=== PATIENT | male | born 1975 | race Caucasian/White ===

== ENCOUNTER 2017-11-18 16:27 | Emergency (ER) | payer SELFPAY ==
[2017-11-18] MEDS ORDERED: LABETALOL HCL INJ 200 MG/40 ML VIAL IV ONE (16:39)
[2017-11-18 16:50] LABS: INTERNATIONAL RATION (INR) 1.06; PARTIAL THROMBOPLASTIN TIME 21.6 SEC (23.5-35.8); PROTHROMBIN TIME 14.4 SEC (11.4-15.4)
[2017-11-18 16:52] LABS: ABSOLUTE BASOPHILS # (AUTO) 0.1 10^3/uL (0.0-0.2); ABSOLUTE EOSINOPHILS # (AUTO) 0.1 10^3/uL (0.0-0.6); ABSOLUTE LYMPHOCYTES (AUTO) 2.4 10^3/uL (0.5-4.7); ABSOLUTE MONOCYTES (AUTO) 1.2 10^3/uL (0.1-1.4); ABSOLUTE NEUT (AUTO) 6.5 10^3/uL (1.7-8.2); BASOPHILS % (AUTO) 0.9 % (0-2); EOSINOPHILS % (AUTO) 0.6 % (0-6); HEMOGLOBIN 15.5 g/dL (13.5-17.0); LYMPHOCYTES % (AUTO) 23.6 % (13-45); MEAN CORPUSCULAR HGB CONC 34.4 g/dL (32.0-36.0); MEAN CORPUSCULAR VOLUME 87 fl (80-97); MONOCYTES % (AUTO) 11.8 % (3-13); PLATELET COUNT 207 10^3/uL (150-450); RED BLOOD COUNT 5.17 10^6/uL (4.35-5.55); RED CELL DISTRIBUTION WIDTH 14.1 % (11.5-14.0); SEGMENTED NEUTROPHILS % (AUTO) 63.1 % (42-78); TOTAL CELLS COUNTED % (AUTO) 100 %; WHITE BLOOD COUNT 10.3 10^3/uL (4.0-10.5)
[2017-11-18] MEDS ORDERED: NALOXONE HCL INJ/PF 0.4 MG/1 ML SDV IV ONE (16:55)
[2017-11-18] MEDS: NORMAL SALINE 1000 ML 1,000 ML IV PRN ×2 (16:57→17:08)
[2017-11-18] MEDS ORDERED: NALOXONE HCL INJ 2 MG/2 ML DISP.SYRIN ONE (17:00)
[2017-11-18] MEDS ORDERED: NALOXONE HCL INJ 2 MG/2 ML DISP.SYRIN IV ONE (17:01)
--- NOTE | 2017-11-18 17:06 | ER Document Report ---
ED General - General Stated Complaint: UNRESPONSIVE Time Seen by Provider: 11/18/17 16:51 Information source: Emergency Med Personnel - HPI Notes: Patient presents by EMS unresponsive and intubated. Per EMS they were called to his house where he was found lying in bed face down. Patient's roommates are the one that called EMS. They did reportedly see him normal at some point this morning but a time is unknown. Patient was found about 25 minutes prior to EMS arrival in the emergency room. Patient's roommate state he has a history of alcoholism but had recently been clean. They denied any drug use to EMS. EMS did not see any medication bottles or drug paraphernalia in the house. HPI is limited because patient is unresponsive and intubated. Past Medical History - Social History Smoking Status: Unknown if Ever Smoked Frequency of alcohol use: History of alcoholism Family History: Other - Unable to obtain because of patient condition - Immunizations Immunizations Comment: Unknown Review of Systems - Review of Systems -: Yes ROS unobtainable due to patient's medical condition Physical Exam - Notes Notes: PHYSICAL EXAMINATION: GENERAL: Diaphoretic, intubated HEAD: Atraumatic, normocephalic. EYES: Pupils equal round and reactive to light, conjunctiva are normal. ENT: nares patent, Moist mucous membranes. NECK:supple without lymphadenopathy LUNGS: Breath sounds diminished to auscultation bilaterally and equal. Endotracheal tube in place, patient has spontaneous respirations. HEART: Tachycardic and ocular rhythm without murmurs ABDOMEN: Soft, normoactive bowel sounds. No masses appreciated. EXTREMITIES: no pitting edema. No cyanosis. No long bone deformities or signs of trauma NEUROLOGICAL: GCS 3 T SKIN: Warm, normal turgor, no rashes or lesions noted. Course - Re-evaluation Re-evalutation: 11/18/17 17:04 Patient arrived by EMS. [id number] glucose stable. Endotracheal tube confirmed with color capnography, symmetric bilateral breath sounds, condensation in endotracheal tube and oxygen saturation of 100%. Patient was tachycardic and hypertensive and there is clinical concern for intracranial hemorrhage. He was given 10 mg IV labetalol for his uncontrolled hypertension and had a bed elevated to 30. CT brain obtained to evaluate for intracranial hemorrhage. Patient has no ICH but CT does show a anoxic brain injury. Chest x -ray shows endotracheal tube at the abbie, ET tube was pulled back 2 cm. EKG shows sinus tachycardia. On reevaluation after CT patient is having nonpurposeful twitching of his upper extremities. He was started on propofol infusion for possible status epilepticus. Lactic acid elevated at 3.5 and he was started on IV hydration. Blood cultures were obtained and patient was given vancomycin and Zosyn for possible underlying sepsis. Patient is requiring neurology consultation and will be transferred to outside facility for further care. Patient's care was discussed with Dr. Scott Medina at [facility] who has accepted patient for admission to their ICU for further management. 11/18/17 17:16 11/18/17 17:20 11/18/17 17:32 11/18/17 17:33 11/18/17 17:35 - Laboratory Result Diagrams: 11/18/17 16:35 11/18/17 16:35 Laboratory results interpreted by me: 11/18/17 11/18/17 11/18/17 16:34 16:35 16:35 RDW 14.1 H APTT 21.6 L Sodium Creatinine Glucose POC Glucose 200 H Lactic Acid Calcium AST ALT Salicylates Acetaminophen 11/18/17 11/18/17 11/18/17 16:35 16:35 16:35 RDW APTT Sodium 147.9 H Creatinine 0.45 L Glucose 205 H POC Glucose Lactic Acid 3.5 H Calcium 8.3 L AST 81 H ALT 86 H Salicylates < 1.0 L Acetaminophen < 10 L - Diagnostic Test Radiology reviewed: Image reviewed, Reports reviewed - EKG Interpretation by Me Additional EKG results interpreted by me: 11/18/17 17:29 Sinus tachycardia, normal axis, no ectopy, rate 163 Critical Care Note - Critical Care Note Total time excluding time spent on procedures (mins): 35 Comments: Potential for cardiovascular and respiratory decompensation. Blood pressure and respiratory stabilization.. Discussed with medical numerical control operator. Discharge - Discharge Clinical Impression: Anoxic brain injury, Lactic acidosis, Unresponsive state, Hypernatremia Alcohol intoxication Qualifiers: Complication of substance-induced condition: with unspecified complication Qualified Code(s): F10.929 - Alcohol use, unspecified with intoxication, unspecified Condition: Stable Disposition: [facility] Unit Admitted: ICU Referrals: LOCALMD,NO [NO LOCAL MD] - Follow up as needed
[2017-11-18 17:12] LABS: ALANINE AMINOTRANSFERASE 86 U/L (21-72); ALBUMIN 4.3 g/dL (3.5-5.0); ALKALINE PHOSPHATASE 112 U/L (38-126); ANION GAP 18 (5-19); ASPARTATE AMINO TRANSFERASE 81 U/L (17-59); BILIRUBIN,DIRECT 0.4 mg/dL (0.0-0.4); BILIRUBIN,TOTAL 0.5 mg/dL (0.2-1.3); BLOOD UREA NITROGEN 10 mg/dL (7-20); CALCIUM 8.3 mg/dL (8.4-10.2); CARBON DIOXIDE 28 mmol/L (22-30); CHLORIDE 102 mmol/L (98-107); CREATINE KINASE 98 U/L (55-170); GLUCOSE 205 mg/dL (75-110); POTASSIUM 3.7 mmol/L (3.6-5.0); SODIUM 147.9 mmol/L (137-145); TOTAL PROTEIN 7.9 g/dL (6.3-8.2)
[2017-11-18 17:13] LABS: ALCOHOL 131 mg/dL (NONE DETECTED)
[2017-11-18 17:16] LABS: ACETAMINOPHEN < 10 ug/mL (10-30); SALICYLATE < 1.0 mg/dL (2.0-20.0)
--- NOTE | 2017-11-18 17:17 | RADIOLOGY REPORT (SQ) ---
EXAM DESCRIPTION: CT HEAD WITHOUT COMPLETED DATE/TIME: 11/18/2017 4:50 pm REASON FOR STUDY: Stroke Alert COMPARISON: None. TECHNIQUE: Axial images acquired through the brain without intravenous contrast. Images reviewed wi th bone, brain and subdural windows. Additional sagittal and coronal reconstructions were generated. Images stored on PACS. All CT scanners at this facility use dose modulation, iterative reconstruction, and/or weight based d osing when appropriate to reduce radiation dose to as low as reasonably achievable (ALARA). [facility]: Dose Right [facility]: CareDose [facility]: Dose Right [facility]: Teradose 4D [facility]: Smart [employer] RADIATION DOSE: CT Rad equipment meets quality standard of care and radiation dose reduction techniq ues were employed. CTDIvol: 53.2 mGy. DLP: 1097 mGy-cm. mGy. LIMITATIONS: None. FINDINGS: VENTRICLES: Normal size and contour. CEREBRUM: No masses. No hemorrhage. No midline shift. There is poor srivastava-white differentiation ove r the convexities and along the temporal lobes. This is worrisome for anoxic injury with diffuse cer ebral edema. Findings discussed with Dr. Alcantar, 1700 hours 11/18/2017. CEREBELLUM: No masses. No hemorrhage. No alteration of density. No evidence for acute infarction. EXTRAAXIAL SPACES: No fluid collections. No masses. ORBITS AND GLOBE: No intra- or extraconal masses. Normal contour of globe without masses. CALVARIUM: No fracture. PARANASAL SINUSES: Air-fluid level left maxillary sinus SOFT TISSUES: No mass or hematoma. OTHER: No other significant finding. IMPRESSION: For srivastava-white differentiation over the convexities and along the temporal lobes worriso me for anoxic brain injury and cerebral edema. Findings discussed with Dr. Alcantar in the emergency sasha m EVIDENCE OF ACUTE STROKE: Diffuse anoxic injury COMMENT: Pertinent findings on the imaging study reported as a CRITICAL RESULT to Dr ALCANTAR at17:00 o n 11/18/2017. Category of Critical Result: CT code stroke Quality ID # [id number]: Final reports with documentation of one or more dose reduction techniques (e.g., Au tomated exposure control, adjustment of the mA and/or kV according to patient size, use of iterative reconstruction technique) TECHNICAL DOCUMENTATION: JOB ID: [id number] [employer]- All Rights Reserved Reading location - IP/workstation name: [email or web address]
[2017-11-18] MEDS ORDERED: PROPOFOL 1,000 MG/100 ML INFUS..BTL IV PRN (17:18)
[2017-11-18] MEDS ORDERED: PROPOFOL 1,000 MG/100 ML INFUS..BTL IV ONE (17:18)
--- NOTE | 2017-11-18 17:19 | RADIOLOGY REPORT (SQ) ---
EXAM DESCRIPTION: CHEST SINGLE VIEW COMPLETED DATE/TIME: 11/18/2017 4:59 pm REASON FOR STUDY: Stroke Alert COMPARISON: None. EXAM PARAMETERS: NUMBER OF VIEWS: One view. TECHNIQUE: Single frontal radiographic view of the chest acquired. RADIATION DOSE: NA LIMITATIONS: Large patient, portable technique FINDINGS: LUNGS AND PLEURA: No opacities, masses or pneumothorax. No pleural effusion. MEDIASTINUM AND HILAR STRUCTURES: No masses. Contour normal. HEART AND VASCULAR STRUCTURES: Mild cardiomegaly BONES: No acute findings. HARDWARE: Endotracheal tube tip at the abbie pointing towards the right mainstem bronchus. Report c alled to Dr. Haq in the emergency room OTHER: Defibrillator pads over the chest. IMPRESSION: Endotracheal tube tip at the abbie pointing towards the right mainstem bronchus. Mild cardiomegaly TECHNICAL DOCUMENTATION: JOB ID: [id number] [employer]- All Rights Reserved Reading location - IP/workstation name: [email or web address]
[2017-11-18] MEDS ORDERED: PIPERACILLIN/TAZOBACTAM 3.375 GM VIAL IV ONE (17:21)
[2017-11-18] MEDS ORDERED: VANCOMYCIN HCL INJ 1000 MG VIAL IV ONE (17:21)
[2017-11-18 17:24] LABS: CREATINE KINASE MB 0.77 ng/mL (<4.55)
[2017-11-18 17:25] LABS: APPEARANCE,URINE CLEAR; BILIRUBIN,URINE NEGATIVE (NEGATIVE); COLOR,URINE YELLOW; GLUCOSE, URINE NEGATIVE (NEGATIVE); KETONES,URINE NEGATIVE (NEGATIVE); LEUKOCYTE ESTERASE,URINE NEGATIVE (NEGATIVE); NITRITE,URINE NEGATIVE (NEGATIVE); PROTEIN,URINE NEGATIVE (NEGATIVE); URINE SPECIFIC GRAVITY 1.015; UROBILINOGEN,URINE NEGATIVE mg/dL (<2.0)
[2017-11-18 17:25] LABS: TROPONIN I < 0.012 ng/mL
[2017-11-18 17:31] LABS: ARTERIAL BLOOD BASE EXCESS -0.3 mmol/L; ARTERIAL BLOOD H2CO3 1.65 mmol/L (1.05-1.35); ARTERIAL BLOOD O2 SATURATION 99.8 % (94-98); ARTERIAL BLOOD PCO2 54.8 mmHg (35-45); ARTERIAL BLOOD PH 7.31 (7.35-7.45); ARTERIAL BLOOD TOTAL CO2 28.7 mmol/L (23-27)
[2017-11-18 17:32] LABS: ARTERIAL BLOOD FIO2 100%
--- NOTE | 2017-11-18 17:33 | EKG REPORT ---
SEVERITY:- ABNORMAL ECG - SINUS TACHYCARDIA ABNRM R PROG, CONSIDER ASMI OR LEAD PLACEMENT : Confirmed by: Ciro Hood MD 18-Nov-2017 17:32:41
[2017-11-18 17:42] LABS: URINE AMPHETAMINES SCREEN NEGATIVE; URINE BARBITURATES SCREEN NEGATIVE; URINE BENZODIAZEPINES SCREEN NEGATIVE; URINE COCAINE SCREEN NEGATIVE; URINE MARIJUANA (THC) SCREEN NEGATIVE; URINE METHADONE SCREEN NEGATIVE; URINE PHENCYCLIDINE SCREEN NEGATIVE
[2017-11-18 19:18] VITALS: BP 147/92
== END 2017-11-18 18:00 | disposition short-term general hospital (02) ==
LOC: ER 16:27
DX: G93.1 Anoxic brain damage, not elsewhere classified (principal); E87.2 Acidosis; E87.0 Hyperosmolality and hypernatremia; R40.20 Unspecified coma; F10.929 Alcohol use, unspecified with intoxication, unspecified; R00.0 Tachycardia, unspecified; I10 Essential (primary) hypertension
CPT/HCPCS: 93005; 36600; 99291; 96361; 51702; 96374; 96375; 36415; 87040; 82553; 82962; 80307 ×4; 82803; 82550; 83605; 85025; 85610; 85730; 80053; 81001; 84484; 71045; 70450; 94660; 93010; J3490; J2310; J7030

== ENCOUNTER 2017-12-12 19:53 | Emergency (ER) | payer OTHER ==
[2017-12-12 20:08] VITALS: BP 154/93
[2017-12-12] MEDS ORDERED: LIDOCAINE 1%/EPINEPHRINE INJ 20 ML VIAL INJ ONE (20:11)
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
== END 2017-12-12 20:52 | disposition left against medical advice (07) ==
LOC: ER 19:53
DX: S09.12XA Laceration of muscle and tendon of head, initial encounter (principal); S01.01XA Laceration without foreign body of scalp, initial encounter; R51 Headache; V48.5XXA Car driver injured in noncollision transport accident in traffic accident, initial encounter; Y93.C2 Activity, hand held interactive electronic device; F17.290 Nicotine dependence, other tobacco product, uncomplicated; Z53.20 Procedure and treatment not carried out because of patient's decision for unspecified reasons
CPT/HCPCS: 99281

== ENCOUNTER 2017-12-23 22:36 | Inpatient (IN) | payer SELFPAY ==
[2017-12-23] MEDS ORDERED: RINGERS SOLUTION,LACTATED 1,000 ML IV ONE (22:56)
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
[2017-12-23 23:57] LABS: HEMATOCRIT 42.3 % (37.9-51.0); HEMOGLOBIN 14.6 g/dL (13.5-17.0); MEAN CORPUSCULAR HEMOGLOBIN 30.1 pg (27.0-33.4); MEAN CORPUSCULAR HGB CONC 34.6 g/dL (32.0-36.0); MEAN CORPUSCULAR VOLUME 87 fl (80-97); PLATELET COUNT 228 10^3/uL (150-450); RED BLOOD COUNT 4.86 10^6/uL (4.35-5.55); RED CELL DISTRIBUTION WIDTH 15.4 % (11.5-14.0); WHITE BLOOD COUNT 21.2 10^3/uL (4.0-10.5)
[2017-12-24 00:01] LABS: ALANINE AMINOTRANSFERASE 346 U/L (21-72); ALBUMIN 4.6 g/dL (3.5-5.0); ALKALINE PHOSPHATASE 166 U/L (38-126); BILIRUBIN,DIRECT 0.8 mg/dL (0.0-0.4); BILIRUBIN,TOTAL 1.1 mg/dL (0.2-1.3); BLOOD UREA NITROGEN 9 mg/dL (7-20); CALCIUM 9.5 mg/dL (8.4-10.2); CARBON DIOXIDE 15 mmol/L (22-30); CHLORIDE 98 mmol/L (98-107); GLUCOSE 177 mg/dL (75-110); LIPASE 131.8 U/L (23-300); POTASSIUM 3.5 mmol/L (3.6-5.0); SODIUM 134.8 mmol/L (137-145); TOTAL PROTEIN 7.9 g/dL (6.3-8.2)
[2017-12-24 00:09] LABS: ALCOHOL < 10 mg/dL (NONE DETECTED)
[2017-12-24 00:10] LABS: ANION GAP 22 (5-19); ASPARTATE AMINO TRANSFERASE 642 U/L (17-59)
[2017-12-24] MEDS ORDERED: RINGERS SOLUTION,LACTATED 1,000 ML IV ONE (00:23)
[2017-12-24 00:30] LABS: ABSOLUTE LYMPHOCYTES# (MANUAL) 1.1 10^3/uL (0.5-4.7); ABSOLUTE MONOCYTES # (MANUAL) 0.4 10^3/uL (0.1-1.4); ABSOLUTE NEUTROPHILS# (MANUAL) 19.7 10^3/uL (1.7-8.2); BASOPHILS % (MANUAL) 0 % (0-2); EOSINOPHILS % (MANUAL) 0 % (0-6); LYMPHOCYTES % (MANUAL) 5 % (13-45); MONOCYTES % (MANUAL) 2 % (3-13); SEGMENTED NEUTROPHILS % (MAN) 93 % (42-78); TOTAL CELLS COUNTED 100
[2017-12-24] MEDS ORDERED: THIAMINE HCL 500 MG in NORMAL SALINE 250 ML IV SCH (00:30)
[2017-12-24 00:31] LABS: ANISOCYTOSIS SLIGHT; PLATELET COMMENT ADEQUATE; POIKILOCYTOSIS SLIGHT; POLYCHROMASIA SLIGHT; STOMATOCYTES 1+
[2017-12-24] MEDS ORDERED: DIAZEPAM INJ 10 MG/2 ML DISP.SYRIN IV ONE (01:22)
[2017-12-24] MEDS ORDERED: POTASSIUM CHLORIDE 20 MEQ/15 ML UDCUP PO ONE (02:00)
[2017-12-24] MEDS ORDERED: ACETAMINOPHEN 325 MG TABLET PO PRN (02:09)
[2017-12-24] MEDS ORDERED: MAG HYDROX/AL HYDROX/SIMETH SUSP 30 ML UDCUP PO PRN (02:09)
[2017-12-24] MEDS ORDERED: METOCLOPRAMIDE HCL INJ/PF 10 MG/2 ML SDV IV PRN (02:09)
[2017-12-24] MEDS ORDERED: PROMETHAZINE HCL 25 MG TABLET PO PRN (02:09)
[2017-12-24] MEDS ORDERED: PROMETHAZINE HCL INJ 25 MG/1 ML VIAL IV PRN (02:09)
[2017-12-24] MEDS ORDERED: RINGERS SOLUTION,LACTATED 1,000 ML IV PRN ×2 (02:09→08:07)
[2017-12-24] MEDS ORDERED: METOPROLOL TARTRATE PF/INJ 5 MG/5 ML SDV IV PRN ×3 (02:19→07:45)
[2017-12-24] MEDS ORDERED: NORMAL SALINE 1000 ML 1,000 ML with POTASSIUM CHLORIDE 20 MEQ, MAGNESIUM SULFATE 8 MEQ,... IV ONE ×5 (02:30)
[2017-12-24] MEDS ORDERED: NORMAL SALINE 1000 ML 1,000 ML IV PRN (02:32)
[2017-12-24] MEDS ORDERED: METHYLPREDNISOLONE INJ 40 MG/1 ML SDV IV ONE (02:45)
[2017-12-24] MEDS ORDERED: POTASSIUM CHLORIDE 20 MEQ/50 ML RTU IV ONE (02:45)
[2017-12-24 02:50] LABS: INTERNATIONAL RATION (INR) 1.11; PROTHROMBIN TIME 14.9 SEC (11.4-15.4)
[2017-12-24] MEDS ORDERED: PANTOPRAZOLE SODIUM 40 MG VIAL IV ONE (02:50)
[2017-12-24 02:51] LABS: PARTIAL THROMBOPLASTIN TIME 25.3 SEC (23.5-35.8)
[2017-12-24] MEDS ORDERED: MVI, ADULT NO.1 WITH VIT K INJ 10 ML VIAL IV ONE (03:00)
[2017-12-24] MEDS ORDERED: MAGNESIUM SULFATE INJ 8 MEQ/2 ML IV ONE (03:00)
[2017-12-24] MEDS ORDERED: THIAMINE HCL INJ 200 MG/2 ML VIAL IV ONE (03:00)
--- NOTE | 2017-12-24 03:05 | PDOC H&P ---
History of Present Illness Admission Date/PCP: 12/24/17 01:42 none Patient complains of: seizures History of Present Illness: BRIAN NICHOLS is a 42 year old male who comes to the emergency department after witnessed seizure episodes. Patient is chronic alcohol dependent and tells me that he tried to detox himself 3 or 4 days ago when was his last drink , he had a seizure episode 2 days ago associated with tremors, patient tells me that he did not drink after this episode, and today he was very confused at home and had the first episode of tonic-clonic seizures, one at home on the second during transportation of the patient to our facility, both witnessed by EMS, lasted few seconds, apparently the patient had a tongue bite, unsure if he had urinary or fecal incontinence. Upon arrival to the ED patient was minimally responsive, tachycardic into the 140s, tremors, has received 2 mg of IV Ativan in the EMS. By the time I went to see him he was alert, could give me history but he was not completely oriented, unknown his baseline mental status as he was in our facility on 11/18 for unresponsiveness that he had to be intubated and transferred to a different facility as it was felt that he had anoxic brain injury. Past Medical History Cardiac Medical History: Reports: Hypertension Past Surgical History Past Surgical History: Reports: Gastric Bypass Surgery Social History Lives with: Family Smoking Status: Former Smoker - Currently vape Frequency of Alcohol Use: Heavy - Mixed heart lemonade Hx Recreational Drug Use: No Hx Prescription Drug Abuse: No Family History Family History: Other - Unable to obtain because of patient condition Family History: Patient lives with his mother who is 63 years old and does not have any medical condition. Does not know anything about his father Parental Family History Reviewed: Yes - As above Children Family History Reviewed: NA Sibling(s) Family History Reviewed.: NA Medication/Allergy Allergies/Adverse Reactions: No Known Drug Allergies Allergy (Verified 12/23/17 23:22) Review of Systems Review of Systems: As outlined in the HPI, others negative Physical Exam Vital Signs: Temp Pulse Resp BP Pulse Ox 18 166/92 H 99 12/24/17 00:02 12/24/17 00:02 12/24/17 00:02 Additional comments: General appearance: Disheveled, alert and cooperative, and appears to be in no acute distress at time of my evaluation Head: Normocephalic Eyes: PEERL, EOMI, vision is grossly intact. Ears: External auditory canal and tympanic membranes clear, hearing grossly intact. Nose: No nasal discharge. Throat: Oral cavity and pharynx with right tongue bite and dried blood around the lips. Neck: Neck supple, nontender without lymphadenopathy, masses or thyromegaly. Cardiac: Normal S1 and S2. No S3, S4 or murmurs. Rhythm is regular. There is no peripheral edema, cyanosis or pallor. Extremities are warm and well perfused. Capillary refill is less than 2 seconds. No carotid bruits. Lungs: Clear to auscultation and percussion without rales, rhonchi, wheezing or diminished breath sounds. Not using accessory muscles. Abdomen: Positive bowel sounds. Soft. Nondistended, nontender. No guarding or rebound. No masses. Hepatosplenomegaly 2cm below ribs Extremities: No significant deformity or joint abnormality. No edema. Peripheral pulses intact. No varicosities. Neurological: Cranial nerves II through XII grossly intact. Strength and sensation symmetric and intact throughout. Reflexes 2+ throughout. Mild tremors Skin: Skin normal color, texture and turgor with no lesions or eruptions, warm and dry. Psychiatric: The mental examination revealed the patient was oriented to person , place, partially in time, could not tell me the month or date Results Laboratory Results: 12/23/17 12/23/17 23:30 23:30 WBC 21.2 H RBC 4.86 Hgb 14.6 Hct 42.3 MCV 87 MCH 30.1 MCHC 34.6 RDW 15.4 H Plt Count 228 Total Counted 100 Seg Neuts % (Manual) 93 H Lymphocytes % (Manual) 5 L Monocytes % (Manual) 2 L Abs Neuts (Manual) 19.7 H Abs Lymphs (Manual) 1.1 Abs Monocytes (Manual) 0.4 Absolute Eos (Manual) 0.0 Abs Basophils (Manual) 0.0 Platelet Comment ADEQUATE Polychromasia SLIGHT Poikilocytosis SLIGHT Anisocytosis SLIGHT Sodium 134.8 L Potassium 3.5 L Chloride 98 Carbon Dioxide 15 L Anion Gap 22 H BUN 9 Creatinine 0.73 Est GFR ( Amer) > 60 Est GFR (Non-Af Amer) > 60 Glucose 177 H Calcium 9.5 Total Bilirubin 1.1 Direct Bilirubin 0.8 H AST 642 H ALT 346 H Alkaline Phosphatase 166 H Total Protein 7.9 Albumin 4.6 Lipase 131.8 Serum Alcohol < 10 EKG Comments: Sinus tachycardia, 140 bpm Impressions: Head CT 12/23/17 22:55 IMPRESSION: No acute intracranial hemorrhage. Assessment & Plan - Diagnosis (1) Alcohol withdrawal Qualifiers: Complication of substance-induced condition: with unspecified complication Qualified Code(s): F10.239 - Alcohol dependence with withdrawal, unspecified Is this a current diagnosis for this admission?: Yes Plan: Patient with long history of alcohol dependence, comes with tremors, hypertension, tachycardia, confusion. Last drink 3-4 days ago. Patient is likely on alcohol withdrawal and will probably go into DTs so I will admit the patient into the intensive care unit place him on continuous telemetry monitoring, [facility] protocol. Will start him on diazepam 10 mg p.o. every 8 hours along with Ativan 2 mg IV every 2 hours as needed. Banana bag. Tomorrow to start with p.o. multivitamins, folic acid, thiamine. Will replete electrolytes as needed. CT head negative. Unclear if patient carries a diagnosis of alcohol induced dementia. (2) Withdrawal seizures Qualifiers: Complication of substance-induced condition: uncomplicated Qualified Code(s ): F19.230 - Other psychoactive substance dependence with withdrawal, uncomplicated; R56.9 - Unspecified convulsions; R56.9 - Unspecified convulsions ; R56.9 - Unspecified convulsions; R56.9 - Unspecified convulsions Is this a current diagnosis for this admission?: Yes Plan: Patient had 2 episodes of weakness tonic-clonic seizure and tells me that 2 days ago he had another episode of seizures, is not taking any medication for seizures at home. Seizure precautions. IV Ativan as needed. I am going to start him on any antiepileptic medication at this is likely alcohol withdrawal seizure. (3) Acute alcoholic hepatitis Is this a current diagnosis for this admission?: Yes Plan: AST 642, ALT 346 and AF 166, on November 18 AST 81, ALT 86 and AF 112. Patient will continue with IV fluids. I am requesting an right upper quadrant ultrasound. Unable to do MELD score or discriminative factor as at this point as PT has not been sent. Patient probably has to be started on steroids. (4) Poorly-controlled hypertension Is this a current diagnosis for this admission?: Yes Plan: Blood pressure 166/92, patient does not remember what medications he is taking at home for blood pressure but likely he is noncompliant and in addition with alcohol withdrawal blood pressure is worsening. Will place the patient on IV Lopressor as needed. (5) Alcohol dependence Is this a current diagnosis for this admission?: Yes Plan: Patient desired to go into detox and quit drinking. Usually drinks mix hard lemonade. I am sending lactic acid levels. (6) Leukocytosis Qualifiers: Leukocytosis type: unspecified Qualified Code(s): D72.829 - Elevated white blood cell count, unspecified Is this a current diagnosis for this admission?: Yes Plan: White blood cells 21.2 with left shift, so far patient does not have any obvious focus of infection. Requested urinalysis. Does not have any respiratory symptom however we will request chest x-ray. (7) Metabolic acidosis Is this a current diagnosis for this admission?: Yes Plan: Likely multifactorial, lactic acid pending. - Time Time Spent: 30 to 50 Minutes - Inpatient Certification Medical Necessity: Risk of Complication if Not Cared For in Hospital
[2017-12-24 03:50] LABS: GAMMA-GLUTAMYL TRANSFERASE 1115 U/L (8-78)
[2017-12-24] MEDS ORDERED: METOPROLOL TARTRATE PF/INJ 5 MG/5 ML SDV IV ONE (03:51)
[2017-12-24] MEDS: LORAZEPAM INJ 2 MG/1 ML VIAL IV PRN ×3 (03:54→22:42)
[2017-12-24 03:55] LABS: ACETAMINOPHEN < 10 ug/mL (10-30); SALICYLATE < 1.0 mg/dL (2.0-20.0)
[2017-12-24 04:19] LABS: ABSOLUTE BASOPHILS # (AUTO) 0.1 10^3/uL (0.0-0.2); ABSOLUTE LYMPHOCYTES (AUTO) 1.2 10^3/uL (0.5-4.7); ABSOLUTE MONOCYTES (AUTO) 0.7 10^3/uL (0.1-1.4); ABSOLUTE NEUT (AUTO) 12.7 10^3/uL (1.7-8.2); BASOPHILS % (AUTO) 0.5 % (0-2); EOSINOPHILS % (AUTO) 0.1 % (0-6); HEMATOCRIT 40.7 % (37.9-51.0); HEMOGLOBIN 14.1 g/dL (13.5-17.0); LYMPHOCYTES % (AUTO) 7.9 % (13-45); MEAN CORPUSCULAR HEMOGLOBIN 29.9 pg (27.0-33.4); MEAN CORPUSCULAR HGB CONC 34.7 g/dL (32.0-36.0); MEAN CORPUSCULAR VOLUME 86 fl (80-97); MONOCYTES % (AUTO) 4.7 % (3-13); PLATELET COUNT 190 10^3/uL (150-450); RED BLOOD COUNT 4.73 10^6/uL (4.35-5.55); RED CELL DISTRIBUTION WIDTH 15.5 % (11.5-14.0); SEGMENTED NEUTROPHILS % (AUTO) 86.8 % (42-78); TOTAL CELLS COUNTED % (AUTO) 100 %; WHITE BLOOD COUNT 14.6 10^3/uL (4.0-10.5)
[2017-12-24 04:26] LABS: APPEARANCE,URINE SLIGHTLY-CLOUDY; BILIRUBIN,URINE NEGATIVE (NEGATIVE); COLOR,URINE YELLOW; GLUCOSE, URINE NEGATIVE (NEGATIVE); KETONES,URINE NEGATIVE (NEGATIVE); LEUKOCYTE ESTERASE,URINE NEGATIVE (NEGATIVE); NITRITE,URINE NEGATIVE (NEGATIVE); PROTEIN,URINE NEGATIVE (NEGATIVE); URINE SPECIFIC GRAVITY 1.004; UROBILINOGEN,URINE NEGATIVE mg/dL (<2.0)
[2017-12-24 04:40] LABS: URINE AMPHETAMINES SCREEN NEGATIVE; URINE BARBITURATES SCREEN NEGATIVE; URINE BENZODIAZEPINES SCREEN NEGATIVE; URINE COCAINE SCREEN NEGATIVE; URINE MARIJUANA (THC) SCREEN NEGATIVE; URINE METHADONE SCREEN NEGATIVE; URINE PHENCYCLIDINE SCREEN NEGATIVE
[2017-12-24 04:46] LABS: ALANINE AMINOTRANSFERASE 295 U/L (21-72); ALBUMIN 4.2 g/dL (3.5-5.0); ALKALINE PHOSPHATASE 153 U/L (38-126); ANION GAP 15 (5-19); ASPARTATE AMINO TRANSFERASE 326 U/L (17-59); BILIRUBIN,DIRECT 0.5 mg/dL (0.0-0.4); BILIRUBIN,TOTAL 1.3 mg/dL (0.2-1.3); BLOOD UREA NITROGEN 8 mg/dL (7-20); CALCIUM 8.9 mg/dL (8.4-10.2); CARBON DIOXIDE 20 mmol/L (22-30); CHLORIDE 105 mmol/L (98-107); CREATINE KINASE 254 U/L (55-170); GLUCOSE 103 mg/dL (75-110); PHOSPHORUS 3.8 mg/dL (2.5-4.5); POTASSIUM 3.8 mmol/L (3.6-5.0); SODIUM 140.4 mmol/L (137-145); TOTAL PROTEIN 7.5 g/dL (6.3-8.2)
--- NOTE | 2017-12-24 05:54 | RADIOLOGY REPORT (SQ) ---
CLINICAL DATA: 42-year-old male with elevated LFTs. TECHNICAL DATA: Limited sonographic imaging of the right upper quadrant was performed. Comparison: None. FINDINGS: The liver is enlarged and measures 21 cm in greatest sagittal dimension. There is diffusely increased echogenicity of the liver most commonly seen with fatty infiltration. No focal hepatic abnormalities are identified. Doppler imaging reveals patency of the portal vein and normal hepatopedal flow. The gallbladder is well distended and contains shadowing echogenic foci consistent with gallstones. There is no evidence of gallbladder wall thickening or pericholecystic fluid. The gallbladder wall measures 2 to 3 mm in diameter. The common bile duct measures 3 mm in diameter. There is no evidence of biliary ductal dilatation. The right kidney is normal in size, shape and echogenicity without hydronephrosis or definite nephrolithiasis. The right kidney measures 11.5 x 4.6 x 6.5 cm. There is no evidence of free fluid in the abdomen. The pancreas is poorly visualized due to overlying bowel gas. The aorta is normal in caliber and contour and tapers distally. The inferior vena cava is grossly unremarkable as visualized. IMPRESSION: 1. Cholelithiasis without evidence of gallbladder wall thickening or biliary ductal dilatation. 2. Hepatomegaly and increased echogenicity of the liver commonly seen with fatty infiltration.
[2017-12-24] MEDS: DIAZEPAM 5 MG TABLET PO SCH ×3 (06:27→21:41)
[2017-12-24] MEDS: HEPARIN SOD (PORCINE) 5,000 UNIT/ML 1 ML SYRINGE SUBCUT SCH ×3 (06:27→21:42)
[2017-12-24 06:47] LABS: BLOOD UREA NITROGEN 9 mg/dL (7-20); CALCIUM 9.2 mg/dL (8.4-10.2); GLUCOSE 180 mg/dL (75-110); PHOSPHORUS 4.6 mg/dL (2.5-4.5); POTASSIUM 3.4 mmol/L (3.6-5.0)
[2017-12-24 06:52] LABS: CARBON DIOXIDE 14 mmol/L (22-30); CHLORIDE 100 mmol/L (98-107); SODIUM 136.2 mmol/L (137-145)
[2017-12-24 06:56] LABS: ANION GAP 22 (5-19)
[2017-12-24] MEDS ORDERED: HYDRALAZINE HCL INJ/PF 20 MG/1 ML SDV IV PRN ×2 (07:44→08:42)
[2017-12-24] MEDS ORDERED: NORMAL SALINE 1000 ML 1,000 ML IV ONE (08:46)
--- NOTE | 2017-12-24 08:54 | Progress Note ---
Provider Note Provider Note: 42 y.o. M presented to the emergency department for seizure activity. The patient reports he was attempting to self detox from EtOH. Last EtOH intake 4 days ago. The patient has a documented history (previous ED visits) of ETOH withdrawal seizures when attempting to self-detox. The patient was seen this morning on rounds. He is asleep, but arousable to verbal stimuli. He is oriented x3, able to answer all questions appropriately. Lungs clear to auscultation, palpable pulses in all extremities, no evidence of jaundice/scleral icterus/abdominal ascites/asterixis on physical exam. 1. Seizure - no anti-epileptics at this time, seizure activity believed to be strictly related to alcohol withdrawal. Head CT normal. Scheduled Valium. PRN Ativan. 2. EtOH withdrawal - last EtOH intake 4 days ago. Patient endorses chronic history of drinking approximately six 12 ounces bottles of [employer] Hard Lemonade per day. Scheduled Valium. PRN Ativan. Banana bag x 1 overnight. Continue with daily thiamine, folate and MVI. Request discharge planning services to discuss EtOH rehab options. 3. HTN - blood pressure has been elevated since admission. Unclear if patient has a history of HTN or if elevated blood pressures secondary to EtOH withdrawal , or possibly both. Metoprolol and hydralazine IV as needed for SBP > 170 4. Lactic Acidosis - Secondary to chronic alcoholism and poor clearance of lactate. Less likely to be secondary to poor tissue perfusion. 2L IVF bolus administered in ED. Plan to administer a 3rd L IVF in ICU. Maintenance IVF 150mL /hr. 5. Transaminitis - Abdominal US demonstrates nonobstructive cholelithiasis and fatty liver infiltrates. Hepatitis panel pending. MELD 4.95 --> associated with <10% mortality. Likely secondary to chronic ETOH intake and hepatic steatosis
[2017-12-24] MEDS: FOLIC ACID 1 MG TABLET PO SCH (09:35)
[2017-12-24] MEDS: MULTIVITAMIN TABLET PO SCH (09:35)
[2017-12-24] MEDS: THIAMINE HCL 100 MG TABLET PO SCH (09:36)
[2017-12-24] MEDS: THIAMINE HCL 500 MG in NORMAL SALINE 250 ML IV SCH (10:32)
[2017-12-24] MEDS: NORMAL SALINE 1000 ML 1,000 ML IV PRN ×2 (14:13→21:41)
--- NOTE | 2017-12-24 19:09 | EKG REPORT ---
SEVERITY:- ABNORMAL ECG - SINUS TACHYCARDIA PROBABLE LEFT ATRIAL ABNORMALITY ABNRM R PROG, CONSIDER ASMI OR LEAD PLACEMENT : Confirmed by: Marium Carlton 24-Dec-2017 19:08:24
[2017-12-25 04:05] LABS: HEMATOCRIT 36.9 % (37.9-51.0); HEMOGLOBIN 12.7 g/dL (13.5-17.0); MEAN CORPUSCULAR HEMOGLOBIN 30.1 pg (27.0-33.4); MEAN CORPUSCULAR HGB CONC 34.4 g/dL (32.0-36.0); MEAN CORPUSCULAR VOLUME 87 fl (80-97); PLATELET COUNT 131 10^3/uL (150-450); RED BLOOD COUNT 4.23 10^6/uL (4.35-5.55); RED CELL DISTRIBUTION WIDTH 15.5 % (11.5-14.0); WHITE BLOOD COUNT 8.1 10^3/uL (4.0-10.5)
[2017-12-25 04:30] LABS: ALANINE AMINOTRANSFERASE 150 U/L (21-72); ALBUMIN 3.4 g/dL (3.5-5.0); ALKALINE PHOSPHATASE 119 U/L (38-126); ANION GAP 10 (5-19); ASPARTATE AMINO TRANSFERASE 93 U/L (17-59); BILIRUBIN,DIRECT 0.4 mg/dL (0.0-0.4); BLOOD UREA NITROGEN 8 mg/dL (7-20); CALCIUM 8.3 mg/dL (8.4-10.2); CARBON DIOXIDE 22 mmol/L (22-30); CHLORIDE 107 mmol/L (98-107); GLUCOSE 101 mg/dL (75-110); POTASSIUM 3.3 mmol/L (3.6-5.0); SODIUM 139.4 mmol/L (137-145); TOTAL PROTEIN 6.4 g/dL (6.3-8.2)
[2017-12-25] MEDS: HEPARIN SOD (PORCINE) 5,000 UNIT/ML 1 ML SYRINGE SUBCUT SCH (05:27)
[2017-12-25] MEDS: DIAZEPAM 5 MG TABLET PO SCH ×2 (05:28→14:06)
[2017-12-25] MEDS: NORMAL SALINE 1000 ML 1,000 ML IV PRN (05:28)
[2017-12-25] MEDS: POTASSIUM CHLORIDE 10 MEQ CAPSULE.ER PO SCH ×2 (05:30→08:27)
[2017-12-25] MEDS: FOLIC ACID 1 MG TABLET PO SCH (11:29)
[2017-12-25] MEDS: MULTIVITAMIN TABLET PO SCH (11:29)
[2017-12-25] MEDS: THIAMINE HCL 100 MG TABLET PO SCH (11:29)
[2017-12-25] MEDS: THIAMINE HCL 500 MG in NORMAL SALINE 250 ML IV SCH (12:06)
[2017-12-25 14:30] VITALS: BP 150/80
[2017-12-26 10:38] LABS: HEPATITIS A AB IGM Negative (Negative); HEPATITIS B CORE AB IGM Negative (Negative); HEPATITS B SURFACE ANTIGEN Negative (Negative)
[2017-12-26 10:49] LABS: HEPATITIS C VIRUS ANTIBODY <0.1 s/co ratio (0.0-0.9)
== END 2017-12-25 15:00 | disposition home or self-care (01) | DRG 897 ==
LOC: ER 22:36 → EH 12-24 01:42 → ICU 12-24 03:30
PROVIDERS: ADMIT Internal Medicine; ATTEND Internal Medicine
DX: F10.239 Alcohol dependence with withdrawal, unspecified (principal); G40.509 Epileptic seizures related to external causes, not intractable, without status epilepticus; E87.2 Acidosis; I10 Essential (primary) hypertension; D72.829 Elevated white blood cell count, unspecified; R74.0 Nonspecific elevation of levels of transaminase and lactic acid dehydrogenase [LDH]; Z98.84 Bariatric surgery status; Z87.891 Personal history of nicotine dependence
CPT/HCPCS: 36415; 70450; 76705; 80048; 80053; 80074; 80307; 81001; 82140; 82550; 82977; 83605; 83690; 83735; 84100; 84132; 85025; 85027; 85610; 85730; 93005; 93010; 96360; 99291; J1644; J2060; J3411; J3480; J3490; J7030; J7050; J7120; S0164

== ENCOUNTER 2018-01-03 14:37 | Emergency (ER) | payer SELFPAY ==
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
[2018-01-03 15:26] LABS: HEMOGLOBIN 14.3 g/dL (13.5-17.0); MEAN CORPUSCULAR HEMOGLOBIN 30.5 pg (27.0-33.4); MEAN CORPUSCULAR HGB CONC 34.9 g/dL (32.0-36.0); MEAN CORPUSCULAR VOLUME 87 fl (80-97); PLATELET COUNT 393 10^3/uL (150-450); RED BLOOD COUNT 4.71 10^6/uL (4.35-5.55); RED CELL DISTRIBUTION WIDTH 15.9 % (11.5-14.0); WHITE BLOOD COUNT 7.5 10^3/uL (4.0-10.5)
[2018-01-03 15:45] LABS: ALANINE AMINOTRANSFERASE 93 U/L (21-72); ALBUMIN 4.7 g/dL (3.5-5.0); ALKALINE PHOSPHATASE 113 U/L (38-126); ASPARTATE AMINO TRANSFERASE 90 U/L (17-59); BILIRUBIN,DIRECT 0.3 mg/dL (0.0-0.4); BILIRUBIN,TOTAL 0.6 mg/dL (0.2-1.3); BLOOD UREA NITROGEN 13 mg/dL (7-20); CALCIUM 8.8 mg/dL (8.4-10.2); GLUCOSE 120 mg/dL (75-110); POTASSIUM 4.7 mmol/L (3.6-5.0); TOTAL PROTEIN 8.3 g/dL (6.3-8.2)
[2018-01-03 15:50] LABS: ACETAMINOPHEN < 10 ug/mL (10-30); SALICYLATE < 1.0 mg/dL (2.0-20.0)
[2018-01-03 15:51] LABS: ABSOLUTE LYMPHOCYTES# (MANUAL) 1.7 10^3/uL (0.5-4.7); ABSOLUTE MONOCYTES # (MANUAL) 0.5 10^3/uL (0.1-1.4); ABSOLUTE NEUTROPHILS# (MANUAL) 5.2 10^3/uL (1.7-8.2); ANION GAP 21 (5-19); BASOPHILS % (MANUAL) 1 % (0-2); CARBON DIOXIDE 19 mmol/L (22-30); CHLORIDE 102 mmol/L (98-107); EOSINOPHILS % (MANUAL) 1 % (0-6); LYMPHOCYTES % (MANUAL) 22 % (13-45); MONOCYTES % (MANUAL) 7 % (3-13); SEGMENTED NEUTROPHILS % (MAN) 69 % (42-78); SODIUM 141.8 mmol/L (137-145); TOTAL CELLS COUNTED 100
[2018-01-03 15:53] LABS: ANISOCYTOSIS SLIGHT; PLATELET COMMENT ADEQUATE; TOXIC GRANULATION SLIGHT
[2018-01-03 16:01] LABS: APPEARANCE,URINE CLEAR; BILIRUBIN,URINE NEGATIVE (NEGATIVE); COLOR,URINE STRAW; GLUCOSE, URINE NEGATIVE (NEGATIVE); KETONES,URINE NEGATIVE (NEGATIVE); LEUKOCYTE ESTERASE,URINE NEGATIVE (NEGATIVE); NITRITE,URINE NEGATIVE (NEGATIVE); PROTEIN,URINE NEGATIVE (NEGATIVE); URINE SPECIFIC GRAVITY 1.005; UROBILINOGEN,URINE NEGATIVE mg/dL (<2.0)
[2018-01-03 16:03] LABS: ALCOHOL 383 mg/dL (NONE DETECTED)
[2018-01-03] MEDS ORDERED: RINGERS SOLUTION,LACTATED 2,000 ML IV ONE (16:22)
[2018-01-03 16:23] LABS: URINE AMPHETAMINES SCREEN NEGATIVE; URINE BARBITURATES SCREEN NEGATIVE; URINE BENZODIAZEPINES SCREEN NEGATIVE; URINE COCAINE SCREEN NEGATIVE; URINE MARIJUANA (THC) SCREEN NEGATIVE; URINE METHADONE SCREEN NEGATIVE; URINE PHENCYCLIDINE SCREEN NEGATIVE
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
[2018-01-03] MEDS ORDERED: THIAMINE HCL 100 MG, FOLIC ACID 1 MG in NORMAL SALINE 250 ML IV SCH ×2 (16:45→18:00)
--- NOTE | 2018-01-03 16:53 | RADIOLOGY REPORT (SQ) ---
EXAM DESCRIPTION: CT HEAD WITHOUT COMPLETED DATE/TIME: 01/03/2018 4:46 pm REASON FOR STUDY: headache COMPARISON: 12/23/2017 TECHNIQUE: Axial images acquired through the brain without intravenous contrast. Images reviewed wi th bone, brain and subdural windows. Additional sagittal and coronal reconstructions were generated. Images stored on PACS. All CT scanners at this facility use dose modulation, iterative reconstruction, and/or weight based d osing when appropriate to reduce radiation dose to as low as reasonably achievable (ALARA). [facility]: Dose Right [facility]: CareDose [facility]: Dose Right [facility]: Teradose 4D [facility]: Benefit Mobile RADIATION DOSE: CT Rad equipment meets quality standard of care and radiation dose reduction techniq ues were employed. CTDIvol: 53.2 mGy. DLP: 1097 mGy-cm. mGy. LIMITATIONS: Patient motion. FINDINGS: VENTRICLES: Normal size and contour. CEREBRUM: No masses. No hemorrhage. No midline shift. No evidence for acute infarction. Normal gra y/white matter differentiation. No areas of low density in the white matter. CEREBELLUM: No masses. No hemorrhage. No alteration of density. No evidence for acute infarction. EXTRAAXIAL SPACES: No fluid collections. No masses. ORBITS AND GLOBE: No intra- or extraconal masses. Normal contour of globe without masses. CALVARIUM: No fracture. PARANASAL SINUSES: No fluid or mucosal thickening. SOFT TISSUES: No mass or hematoma. OTHER: No other significant finding. IMPRESSION: NORMAL BRAIN CT WITHOUT CONTRAST. EVIDENCE OF ACUTE STROKE: NO. COMMENT: Quality ID # [id number]: Final reports with documentation of one or more dose reduction techniques (e.g., Automated exposure control, adjustment of the mA and/or kV according to patient size, use of iterative reconstruction technique) TECHNICAL DOCUMENTATION: JOB ID: [id number] [employer]- All Rights Reserved Reading location - IP/workstation name: [email or web address]
[2018-01-03] MEDS ORDERED: NICOTINE 14 MG/24 HR PATCH.TD24 TD ONE (17:51)
[2018-01-03] MEDS: LORAZEPAM 1 MG TABLET PO PRN ×2 (17:54→21:34)
--- NOTE | 2018-01-03 18:11 | EKG REPORT ---
SEVERITY:- OTHERWISE NORMAL ECG - SINUS TACHYCARDIA : Confirmed by: Ciro Hood MD 03-Jan-2018 18:10:26
[2018-01-04] MEDS ORDERED: ONDANSETRON 4 MG TAB.RAPDIS PO ONE (00:52)
[2018-01-04] MEDS ORDERED: LORAZEPAM INJ 2 MG/1 ML VIAL IM ONE (00:52)
[2018-01-04] MEDS: LORAZEPAM 1 MG TABLET PO PRN (03:11)
[2018-01-04] MEDS ORDERED: AMLODIPINE BESYLATE 5 MG TABLET PO ONE (06:36)
--- NOTE | 2018-01-04 08:48 | PSYCHOLOGICAL NOTE ---
Psych Note - Psych Note Date seen by psych provider: 01/04/18 Time seen by psych provider: 08:20 Psych Note: Reason for Consult: depression, alcohol abuse 42-year-old male brought in by EMS because he fell in the bathtub at home. Check in with patient Patient discloses he pretty much remembers everything from yesterday. He reports that he has been drinking since June "I started slowly after finishing [employer] (patient clarified [employer] is a criminal justice class) I think it was the stress of it all." Patient confirms his did leave in October. When asked about possible depression he reports "I do not feel like I am depressed...I just like drinking." He confirms that he has talked to some "professionals" about his symptoms but does not have any mental health diagnosis. He discloses that he knows that he just needs to stop drinking and get busy because he does better when he is not just sitting around. He reports that he has all the information for AA and his plan is to return "I was pretty heavily involved with AA I am not exactly sure how I slipped this far." Denies any thoughts of self-harm or killing himself. Patient denies any thoughts of harming others. Mood is euthymic with congruent affect. Patient openly engaged with clinician and made good eye contact. No medication recommendations at this time Diagnosis 303.90 (F10.20) alcohol use disorder; severe V6 1.10 (6 3.0) the relationship to stress with spouse Impression\\plan: Patient is recommended for rescind of IVC and is cleared from acute psychiatric services. Patient denies thoughts of self-harm and believes he is not depressed. He reports that he just likes to drink. Patient reports he used to be heavily involved in AA however after finishing a course in criminal justice started slowly drinking again. He disclosed the plan of getting back in with AA because he was successfully sober for 18 months with that support. Patient does not meet IVC criteria per [place] GS 122C. Patient is recommended to follow through with outpatient substance abuse treatment services such as AA. Dr. Delcid was consulted and the care and management this patient; attending physician is in agreement with recommendations and disposition.
[2018-01-04 08:56] VITALS: BP 145/75
--- NOTE | 2018-01-04 09:53 | ER Document Report ---
Doctor's Note Notes: 01/04/18 09:51 Rounds: Chart reviewed and patient interviewed. Patient was evaluated for acute alcohol intoxication on top of chronic alcoholism. Supposedly depressed, the patient says he does not wish to . He previously has been in and AA and done well and plans to do the same at this time. Vital signs are all essentially normal except for heart rate of 105. Lab studies were all essentially normal except for his alcohol level of 383. Patient appears to be medically stable for transfer or discharge. Charissa Lynch MD
== END 2018-01-04 10:09 | disposition home or self-care (01) ==
LOC: ER 14:37
DX: F10.229 Alcohol dependence with intoxication, unspecified (principal); F32.9 Major depressive disorder, single episode, unspecified; W18.2XXA Fall in (into) shower or empty bathtub, initial encounter; I10 Essential (primary) hypertension; Z87.820 Personal history of traumatic brain injury
CPT/HCPCS: 93005; 99285; 96372; 96365; 36415; 80307 ×4; 82140; 85025; 80053; 81001; 70450; 93010; S0119; J3490; J2060; J3411; J7050

== ENCOUNTER 2018-11-20 15:59 | Emergency (ER) | payer SELFPAY ==
--- NOTE | 2018-11-20 16:23 | ER Document Report ---
ED Medical Screen (RME) - General Chief Complaint: Alcohol Withdrawl Stated Complaint: ETOH Time Seen by Provider: 11/20/18 16:19 Mode of Arrival: Wheelchair Information source: Patient Notes: 43-year-old male presented to ED for drinking too much. Apprentice Embalmer from [facility] went to pick him up and his a time for his appointment states that his mother stated that he had been drinking all morning but he was sleeping so he woke him up and brought him to the [facility] stated on the way he the patient stated that he was started to get upset stomach and he needed some IV so the driver/refuse collector gave him some ice he went in there got his ice and went to the bathroom when he came out he was acting more inebriated. He states as he was going along down the road to [facility] he was getting more more inebriated. He states he did not give him anything to drink or any kind of drugs. States when he got to the [facility] the patient was not able to get out of the car. In order for him to return to provided needs to call [facility] to ensure that he can go back. I have greeted and performed a rapid initial assessment of this patient. A comprehensive ED assessment and evaluation of the patient, analysis of test re sults and completion of medical decision making process will be conducted by an additional ED providers. TRAVEL OUTSIDE OF THE [place] IN LAST 30 DAYS: No - Related Data Allergies/Adverse Reactions: No Known Drug Allergies Allergy (Verified 12/23/17 23:22) Past Medical History - Past Medical History Cardiac Medical History: Reports: Hx Hypertension Renal/ Medical History: Denies: Hx Peritoneal Dialysis Past Surgical History: Reports: Hx Bowel Surgery, Hx Gastric Bypass Surgery Physical Exam - Vital signs Vitals: Temp Pulse Resp BP Pulse Ox 97.7 F 125 H 22 H 158/94 H 98 11/20/18 16:09 11/20/18 16:09 11/20/18 16:11/20/18 16:11/20/18 16:09 Course - Vital Signs Vital signs: Temp Pulse Resp BP Pulse Ox 97.7 F 125 H 22 H 158/94 H 98 11/20/18 16:09 11/20/18 16:09 11/20/18 16:09 11/20/18 16:11/20/18 16:09
[2018-11-20] MEDS: RINGERS SOLUTION,LACTATED 1,000 ML IV PRN ×2 (16:45→16:46)
--- NOTE | 2018-11-20 17:09 | ER Document Report ---
ED General - General Chief Complaint: Alcohol Withdrawl Stated Complaint: ETOH Time Seen by Provider: 11/20/18 16:19 Mode of Arrival: Wheelchair TRAVEL OUTSIDE OF THE [place] IN LAST 30 DAYS: No - HPI Notes: Patient is a 43-year-old male that presents to the emergency department for chief complaint of alcohol intoxication. Patient had been picked up by a front office representative from [facility] to be taken to the facility for alcohol detox. The front office representative states that patient appeared to be getting more intoxicated while in route to the facility. When they got to [facility] he was too intoxicated to get out of the vehicle. The patient states he is only had 2 [employer] hard lemonade's today and that he gets drunk easily because of history of gastric bypass. He denies heavy alcohol consumption yesterday. He denies history of hallucinations or withdrawal seizures. Patient does still want to go into [facility] for alcohol detox. He has no current complaints and states that he feels intoxicated but okay. Past Medical History: Hypertension Past Surgical History: Gastric bypass Social History: Alcoholism, denies tobacco and drug use Family History: Reviewed and noncontributory for presenting illness Allergies: Reviewed, see documented allergy list. REVIEW OF SYSTEMS: CONSTITUTIONAL : No fever No chills No diaphoresis No recent illness EENT: No vision changes No congestion No sore throat CARDIOVASCULAR: No chest pain No palpitations RESPIRATORY: No shortness of breath No cough No difficulty breathing GASTROINTESTINAL: No abdominal pain No nausea No vomiting No diarrhea GENITOURINARY: No dysuria No hematuria No difficulty urinating MUSCULOSKELETAL: No back pain No leg pain No arm pain SKIN: No rashes No lesions LYMPHATIC: No swollen, enlarged glands. NEUROLOGICAL: No lightheadedness No headache No weakness No paresthesias PSYCHIATRIC: No anxiety No depression PHYSICAL EXAMINATION: Vital signs reviewed, nursing noted reviewed. GENERAL: Appears intoxicated, well-nourished and in no acute distress. HEAD: Atraumatic, normocephalic. EYES: Eyes appear normal, extraocular movements intact, sclera anicteric, conjunctiva are normal. ENT: nares patent, oropharynx clear without exudates. Moist mucous membranes. NECK: Normal range of motion, supple without lymphadenopathy LUNGS: Breath sounds clear to auscultation bilaterally and equal. No wheezes rales or rhonchi. HEART: Regular rate and rhythm without murmurs ABDOMEN: Soft, nontender, normoactive bowel sounds. No rebound, guarding, or rigidity. No masses appreciated. EXTREMITIES: Nontender, good range of motion, no pitting or edema. NEUROLOGICAL: Alert, mildly slurred speech, no focal neurological deficits. Moves all extremities spontaneously Motor and sensory grossly intact on exam. PSYCH: Normal mood, normal affect. SKIN: Warm, Dry, normal turgor, no rashes or lesions noted on exposed skin - Related Data Allergies/Adverse Reactions: No Known Drug Allergies Allergy (Verified 12/23/17 23:22) Past Medical History - General Information source: Patient - Social History Smoking Status: Current Every Day Smoker Frequency of alcohol use: Heavy Drug Abuse: None Family History: Other - Mother's father was an alcoholic Patient has suicidal ideation: No Patient has homicidal ideation: No - Past Medical History Cardiac Medical History: Reports: Hx Hypertension Renal/ Medical History: Denies: Hx Peritoneal Dialysis Past Surgical History: Reports: Hx Bowel Surgery, Hx Gastric Bypass Surgery Physical Exam - Vital signs Vitals: Temp Pulse Resp BP Pulse Ox 97.7 F 125 H 22 H 158/94 H 98 11/20/18 16:09 11/20/18 16:09 11/20/18 16:09 11/20/18 16:09 11/20/18 16:09 Course - Re-evaluation Re-evalutation: 11/20/18 17:08 Vitals reviewed. Nursing notes reviewed. Patient appears intoxicated with mild slurred speech but is alert and oriented. He is in no acute distress. His EKG shows sinus tachycardia. Patient was ordered IV fluids in triage which has improved his tachycardia. He still has about 1 L of fluids remaining. Lab work has been drawn to evaluate patient's level of alcohol and for further medical clearance for him to return to [facility]. 11/20/18 19:01 Patient's lab work shows alcohol level of 390. For him to be able to go to [facility] he has to have an alcohol level less than 250. Patient's repeat alcohol will be drawn at 10 PM. He has remained awake and alert. He is in no acute distress. His tachycardia has improved with IV fluids. Plan to recheck blood alcohol level and discharge to [facility] when less than 250. Laboratory 11/20/18 11/20/18 16:41 16:41 WBC 9.6 RBC 4.96 Hgb 14.4 Hct 41.7 MCV 84 MCH 29.0 MCHC 34.5 RDW 14.1 H Plt Count 334 Lymph % (Auto) 35.1 [place] % (Auto) 6.7 Eos % (Auto) 2.6 Baso % (Auto) 1.5 Absolute Neuts (auto) 5.2 Absolute Lymphs (auto) 3.4 Absolute Monos (auto) 0.6 Absolute Eos (auto) 0.3 Absolute Basos (auto) 0.1 Seg Neutrophils % 54.1 Sodium 142.6 Potassium 4.2 Chloride 104 Carbon Dioxide 25 Anion Gap 14 BUN 9 Creatinine 0.67 Est GFR ( Amer) > 60 Est GFR (MDRD) Non-Af > 60 Glucose 160 H Calcium 8.9 Total Bilirubin 0.3 Direct Bilirubin 0.3 Neonat Total Bilirubin Not Reportable Neonat Direct Bilirubin Not Reportable Neonat Indirect Bili Not Reportable AST 70 H ALT 75 Alkaline Phosphatase 110 Total Protein 7.4 Albumin 4.3 Salicylates < 1.0 L Acetaminophen < 10 L Serum Alcohol 390 H* - Vital Signs Vital signs: Temp Pulse Resp BP Pulse Ox 97.7 F 125 H 27 H 141/77 H 99 11/20/18 16:09 11/20/18 16:09 11/20/18 20:01 11/20/18 20:01 11/20/18 20:01 - Laboratory Result Diagrams: 11/20/18 16:41 11/20/18 16:41 Laboratory results interpreted by me: 11/20/18 11/20/18 16:41 16:41 RDW 14.1 H Glucose 160 H AST 70 H Salicylates < 1.0 L Acetaminophen < 10 L Serum Alcohol 390 H* - EKG Interpretation by Me Additional EKG results interpreted by me: 11/20/18 17:07 Interpreted by myself [id number]: Sinus tachycardia, rate 103, normal axis, no ectopy, no STEMI Discharge - Discharge Clinical Impression: Alcohol intoxication Qualifiers: Complication of substance-induced condition: uncomplicated Qualified Code(s): F10.920 - Alcohol use, unspecified with intoxication, uncomplicated Condition: Stable Disposition: HOME, SELF-CARE Instructions: Acute Alcohol Intoxication ([facility]), Chronic Alcoholism ([facility]) Additional Instructions: Go directly to [facility] for alcohol detox Please return to the emergency department if you have any worsening, or concern of your symptoms. Please return to the emergency department if you develop chest pain, difficulty breathing, severe abdominal pain, or ongoing vomiting. Please follow-up with your primary care physician in 2-3 days and any other recommended physicians. If prescribed, take all medications as directed. If you have any questions or concerns do not hesitate to return the emergency department for evaluation.
[2018-11-20 17:37] LABS: ABSOLUTE BASOPHILS # (AUTO) 0.1 10^3/uL (0.0-0.2); ABSOLUTE EOSINOPHILS # (AUTO) 0.3 10^3/uL (0.0-0.6); ABSOLUTE LYMPHOCYTES (AUTO) 3.4 10^3/uL (0.5-4.7); ABSOLUTE MONOCYTES (AUTO) 0.6 10^3/uL (0.1-1.4); ABSOLUTE NEUT (AUTO) 5.2 10^3/uL (1.7-8.2); BASOPHILS % (AUTO) 1.5 % (0-2); EOSINOPHILS % (AUTO) 2.6 % (0-6); HEMATOCRIT 41.7 % (37.9-51.0); HEMOGLOBIN 14.4 g/dL (13.5-17.0); LYMPHOCYTES % (AUTO) 35.1 % (13-45); MEAN CORPUSCULAR HGB CONC 34.5 g/dL (32.0-36.0); MEAN CORPUSCULAR VOLUME 84 fl (80-97); MONOCYTES % (AUTO) 6.7 % (3-13); PLATELET COUNT 334 10^3/uL (150-450); RED BLOOD COUNT 4.96 10^6/uL (4.35-5.55); RED CELL DISTRIBUTION WIDTH 14.1 % (11.5-14.0); SEGMENTED NEUTROPHILS % (AUTO) 54.1 % (42-78); TOTAL CELLS COUNTED % (AUTO) 100 %; WHITE BLOOD COUNT 9.6 10^3/uL (4.0-10.5)
[2018-11-20 18:03] LABS: ALBUMIN 4.3 g/dL (3.5-5.0); ALKALINE PHOSPHATASE 110 U/L (38-126); ANION GAP 14 (5-19); ASPARTATE AMINO TRANSFERASE 70 U/L (17-59); BILIRUBIN,DIRECT 0.3 mg/dL (0.0-0.4); BILIRUBIN,TOTAL 0.3 mg/dL (0.2-1.3); BLOOD UREA NITROGEN 9 mg/dL (7-20); CALCIUM 8.9 mg/dL (8.4-10.2); CARBON DIOXIDE 25 mmol/L (22-30); CHLORIDE 104 mmol/L (98-107); GLUCOSE 160 mg/dL (75-110); POTASSIUM 4.2 mmol/L (3.6-5.0); TOTAL PROTEIN 7.4 g/dL (6.3-8.2)
[2018-11-20 18:21] LABS: ACETAMINOPHEN < 10 ug/mL (10-30); SALICYLATE < 1.0 mg/dL (2.0-20.0)
[2018-11-20 18:22] LABS: ALCOHOL 390 mg/dL (NONE DETECTED)
[2018-11-20 20:13] LABS: APPEARANCE,URINE CLEAR; BILIRUBIN,URINE NEGATIVE (NEGATIVE); COLOR,URINE YELLOW; GLUCOSE, URINE NEGATIVE (NEGATIVE); KETONES,URINE NEGATIVE (NEGATIVE); LEUKOCYTE ESTERASE,URINE NEGATIVE (NEGATIVE); NITRITE,URINE NEGATIVE (NEGATIVE); PROTEIN,URINE NEGATIVE (NEGATIVE); URINE SPECIFIC GRAVITY 1.011; UROBILINOGEN,URINE NEGATIVE mg/dL (<2.0)
[2018-11-20 20:28] LABS: URINE AMPHETAMINES SCREEN NEGATIVE; URINE BARBITURATES SCREEN NEGATIVE; URINE BENZODIAZEPINES SCREEN NEGATIVE; URINE COCAINE SCREEN NEGATIVE; URINE MARIJUANA (THC) SCREEN NEGATIVE; URINE METHADONE SCREEN NEGATIVE; URINE PHENCYCLIDINE SCREEN NEGATIVE
--- NOTE | 2018-11-20 22:39 | ER Document Report ---
Doctor's Note Notes: 11/20/18 22:32 ASSESSMENT AND PLAN: Briefly, this patient is a 43-year-old male with a past medical history of alcohol dependence who presents with acute alcohol intoxication. Work-up thus far shows acute alcohol intoxication with initial blood alcohol level greater than 300. Interventions include IV fluids and blood work. Plan as discussed with Dr. Lamb is to repeat blood alcohol and disposition the patient once it is less than 250. 1. Repeat ethanol level is around 200. 2. Will disposition the patient to inpatient alcohol detox facility. 3. Will discharge the patient to inpatient detox with strict return precautions. All results were explained to and discussed with the patient, and all questions addressed and answered for the patient. The patient voices both understanding and agreeing with the plan. Discharge - Discharge Clinical Impression: Alcohol intoxication Qualifiers: Complication of substance-induced condition: uncomplicated Qualified Code(s): F10.920 - Alcohol use, unspecified with intoxication, uncomplicated Condition: Stable Disposition: HOME, SELF-CARE Instructions: Acute Alcohol Intoxication ([facility]), Chronic Alcoholism ([facility]) Additional Instructions: Go directly to [facility] for alcohol detox Please return to the emergency department if you have any worsening, or concern of your symptoms. Please return to the emergency department if you develop chest pain, difficulty breathing, severe abdominal pain, or ongoing vomiting. Please follow-up with your primary care physician in 2-3 days and any other recommended physicians. If prescribed, take all medications as directed. If you have any questions or concerns do not hesitate to return the emergency department for evaluation. Print Language: Burmese
[2018-11-20 22:44] VITALS: BP 167/105
--- NOTE | 2018-11-20 23:20 | EKG REPORT ---
SEVERITY:- OTHERWISE NORMAL ECG - SINUS TACHYCARDIA : Confirmed by: Marium Carlton 20-Nov-2018 23:19:59
== END 2018-11-20 22:59 | disposition home or self-care (01) ==
LOC: ER 15:59
DX: F10.920 Alcohol use, unspecified with intoxication, uncomplicated (principal); F17.200 Nicotine dependence, unspecified, uncomplicated; I10 Essential (primary) hypertension; Z98.84 Bariatric surgery status; Y90.8 Blood alcohol level of 240 mg/100 ml or more
CPT/HCPCS: 93005; 99285; 96360; 96361; 36415; 80307 ×4; 85025; 80053; 81001; 93010; J7120